=== PATIENT | female | born 1995 | race Caucasian/White ===

== ENCOUNTER 2018-07-13 09:10 | Emergency (ER) | payer BC ==
--- NOTE | 2018-07-13 09:24 | EDPHY ---
H & P Stated Complaint: CP Time Seen by Provider: 07/13/18 09:19 - Personal History LMP (Females 10-55): 15-21 Days Ago Current Tetanus/Diphtheria Vaccine: Yes - Medical/Surgical History Hx Asthma: No Hx Chronic Respiratory Disease: No Hx Diabetes: No Hx Cardiac Disease: No Hx Renal Disease: No Hx Cirrhosis: No Hx Alcoholism: No Other PMH: Denies - Social History Smoking Status: Never smoked Constitutional: Initial Vital Signs Temperature (C) 36.8 C 07/13/18 09:13 Heart Rate 75 07/13/18 09:13 Respiratory Rate 18 07/13/18 09:13 Blood Pressure 142/80 H 07/13/18 09:13 O2 Sat (%) 100 07/13/18 09:13 O2 Delivery Mode Room Air Allergies/Adverse Reactions: No Known Allergies Allergy (Unverified 07/13/18 09:16) Home Medications: Medication Instructions Recorded Ibuprofen [Motrin] 800 mg PO Q8 #20 tab 07/13/18 Norethindrone 07/13/18 Medical Decision Making ED Course/Re-evaluation: CHIEF COMPLAINT: Chest pain HISTORY OF PRESENT ILLNESS: Healthy 23-year-old female who has 1 month history of right chest wall pain that radiates toward her right shoulder. It is exacerbated by movement and deep breath. 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 Or when she stretches her chest. She has never had symptoms like this before. She does take low-dose control pills. She denies any: No fever, headache, body aches, lightheadedness , heart palpitations, shortness of breath, cough, abdominal pain, urinary or bowel complaints, numbness, paresthesias. REVIEW OF SYSTEMS: A comprehensive 10 system review of systems is otherwise negative aside from elements mentioned in the history of present illness and medical decision making. PHYSICAL EXAM: HR, BP, O2 Sat, RR. Temp noted General Appearance: Alert, well hydrated, appropriate, and non-toxic appearing. Head: Atraumatic without scalp tenderness or obvious injury Eyes: Pupils equal, round, reactive to light and accommodation, EOMI, no trauma , no injection. Ears: Clear bilaterally, no perforation, normal landmarks Nose: Atraumatic, no rhinorrhea, clear. Throat: There is no erythema or exudates, no lesions, normal tonsils, mucus membranes moist. Neck: Supple, 2+ carotid upstroke, nontender, no lymphadenopathy. Respiratory: No retractions, no distress, no wheezes, and no accessory muscle use. Lungs are clear to auscultation bilaterally. Cardiovascular: Regular rate and rhythm, no murmurs, rubs, or gallops. Bilateral carotid, radial, dorsalis pedis, and posterior tibial pulses intact. Good capillary refill all extremities. Gastrointestinal: Abdomen is soft, nontender, non-distended, no masses, no rebound, no guarding, no peritoneal signs. Musculoskeletal: Completely reproducible chest wall pain along the right anterior chest. This is the exact pain the patient is experiencing when she moves and takes a deep breath. Normal active ROM of all extremities, atraumatic. Neurological: Alert, appropriate, and interactive. The patient has normal DTRs and non-focal cranial nerves, motor, sensory, and cerebellar exam. Skin: No rashes, good turgor, no nodules on palpation. Past medical history: Patient denies Past surgical history: Patient denies Family history: Noncontributory Social history: Single, student, does not abuse tobacco drugs or alcohol DIAGNOSTICS/PROCEDURES/CRITICAL CARE TIME: The 12 lead EKG was interpreted by myself. See hard copy and/or "tracemaster" electronic copy for interpretation. Sinus mechanism, normal intervals, no ischemia, no pericarditis DIFFERENTIAL DIAGNOSIS: The differential diagnosis for the patient's chest pain included but was not limited to costochondritis, myocardial ischemia, pulmonary embolus, chest wall pain, pleural inflammation, and pulmonary infectious causes. MEDICAL DECISION MAKING: This patient has reproducible chest wall pain. She is very active with her drama courses and yoga. EKG is unremarkable. Laboratory studies are unremarkable. This patient does not have a blood clot with a negative D-dimer and she does not troponin bump. This patient is somewhat relieved with Toradol. I will start her on an NSAID and have her follow up with primary care as needed. - Data Points Laboratory Results: Laboratory Results 07/13/18 09:30 07/13/18 09:30 07/13/18 07/13/18 07/13/18 09:59 09:34 09:30 WBC RBC Hgb Hct MCV MCH MCHC RDW Plt Count MPV Neut % (Auto) Lymph % (Auto) Cross % (Auto) Eos % (Auto) Baso % (Auto) Nucleat RBC Rel Count Absolute Neuts (auto) Absolute Lymphs (auto) Absolute Monos (auto) Absolute Eos (auto) Absolute Basos (auto) Absolute Nucleated RBC Immature Gran % Immature Gran # D-Dimer < 0.27 ug/mLFEU ug/mLFEU (0.00-0.50) Sodium 140 mEq/L mEq/L (135-145) Potassium 3.9 mEq/L mEq/L (3.5-5.2) Chloride 104 mEq/L mEq/L (97-110) Carbon Dioxide 26 mEq/l mEq/l (22-31) Anion Gap 10 mEq/L mEq/L (6-14) BUN 9 mg/dL mg/dL (7-23) Creatinine 0.7 mg/dL mg/dL (0.6-1.0) Estimated GFR > 60 Glucose 84 mg/dL mg/dL (70-100) Calcium 9.6 mg/dL mg/dL (8.5-10.4) POC Troponin I 0.00 ng/mL ng/mL (0.00-0.08) 07/13/18 07/13/18 09:30 09:30 WBC 7.23 10^3/uL 10^3/uL (3.80-9.50) RBC 4.49 10^6/uL 10^6/uL (4.18-5.33) Hgb 15.0 g/dL g/dL (12.6-16.3) Hct 42.5 % % (38.0-47.0) MCV 94.7 fL fL (81.5-99.8) MCH 33.4 pg pg (27.9-34.1) MCHC 35.3 g/dL g/dL (32.4-36.7) RDW 12.5 % % (11.5-15.2) Plt Count 254 10^3/uL 10^3/uL (150-400) MPV 11.4 fL fL (8.7-11.7) Neut % (Auto) 53.6 % % (39.3-74.2) Lymph % (Auto) 37.6 % % (15.0-45.0) Cross % (Auto) 5.4 % % (4.5-13.0) Eos % (Auto) 1.9 % % (0.6-7.6) Baso % (Auto) 1.4 % % (0.3-1.7) Nucleat RBC Rel Count 0.0 % % (0.0-0.2) Absolute Neuts (auto) 3.87 10^3/uL 10^3/uL (1.70-6.50) Absolute Lymphs (auto) 2.72 10^3/uL 10^3/uL (1.00-3.00) Absolute Monos (auto) 0.39 10^3/uL 10^3/uL (0.30-0.80) Absolute Eos (auto) 0.14 10^3/uL 10^3/uL (0.03-0.40) Absolute Basos (auto) 0.10 10^3/uL 10^3/uL (0.02-0.10) Absolute Nucleated RBC 0.00 10^3/uL 10^3/uL (0-0.01) Immature Gran % 0.1 % % (0.0-1.1) Immature Gran # 0.01 10^3/uL 10^3/uL (0.00-0.10) D-Dimer REJ Sodium Potassium Chloride Carbon Dioxide Anion Gap BUN Creatinine Estimated GFR Glucose Calcium POC Troponin I Point of Care Test Results: Chemistry 07/13/18 09:34 POC Troponin I 0.00 ng/mL ng/mL (0.00-0.08) Departure - Departure Disposition: Home, Routine, Self-Care Clinical Impression: Costochondritis Condition: Good Instructions: Costochondritis (ED) Additional Instructions: 1. Take Motrin as prescribed. 2. Follow-up with your primary doctor within 72 hours. 3. Return to the Emergency Department for fever, chest pain, shortness of breath , increasing pain or other worsening of condition. Referrals: [facility],. [Clinic] - As per Instructions Prescriptions: Ibuprofen [Motrin] 800 mg PO Q8 #20 tab Report Scribed for: Zhao Wen Report Scribed by: Fabiana Fair Date of Report: 07/13/18 Time of Report: 09:27
[2018-07-13 09:41] LABS: PLATELET COUNT 254 10^3/uL (150-400)
[2018-07-13 10:32] VITALS: BP 137/70
--- NOTE | 2018-07-13 14:37 | CPEKG ---
Test Reason : OPEN Blood Pressure : / mmHG Vent. Rate : 065 BPM Atrial Rate : 063 BPM P-R Int : 139 ms QRS Dur : 096 ms QT Int : 397 ms P-R-T Axes : 034 013 030 degrees QTc Int : 413 ms Sinus rhythm Confirmed by Zhao Wen ([id number]) on 07/13/2018 2:36:26 PM Referred By: Zhao Wen Confirmed By:Zhao Wen
== END 2018-07-13 10:31 | disposition home or self-care (01) ==
DX: M94.0 Chondrocostal junction syndrome [Tietze] (principal)
CPT/HCPCS: 84484-ER

== ENCOUNTER 2018-07-18 11:37 | Emergency (ER) | payer BC ==
--- NOTE | 2018-07-18 13:15 | EDPHY ---
H & P Time Seen by Provider: 07/18/18 13:10 HPI/ROS: Chief complaint. Shoulder pain HPI. 23-year-old female with right anterior chest pain and right shoulder pain for 1 month. It is tender to palpation. It is in the right chest and goes to the right shoulder, right-sided neck and some radiation down the right arm. She describes as pinching type pain. It is worse with movement of her right shoulder as well as stretching her chest. Increased discomfort after use yesterday. 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 Slight nausea. No fever. No injury at the onset. Patient was seen July 13 in our ED for same. She had a normal workup with EKG, troponin , D-dimer. No x-ray was performed. Diagnosis was costochondritis. She has been using anti-inflammatories with inadequate relief ROS 10 systems were reviewed and negative with the exception of the elements mentioned in the history of present illness Past Medical/Surgical History: Healthy Social History: Single, nonsmoker, no alcohol Smoking Status: Never smoked Physical Exam: General Appearance: Alert pleasant well-developed female mild distress. Vital signs are stable Eyes: Pupils equal and round no pallor or injection. ENT, Mouth: Mucous membranes are moist. Respiratory: There are no retractions, lungs are clear to auscultation. Cardiovascular: Regular rate and rhythm. Gastrointestinal: Abdomen is soft and nontender, no masses, bowel sounds normal. Neurological: Awake and alert, sensory and motor exams grossly normal. Skin: Warm and dry, no rashes. Musculoskeletal: Tenderness to the right side of her neck but not over the cervical spine. No T, L, S spine tenderness. Exquisite tenderness to palpation at the sternal clavicular junction on the right reproducing her symptoms. Mild discomfort to the shoulder without any evidence of redness or deformity Extremities symmetrical, full range of motion. Psychiatric: Patient is oriented X 3, there is no agitation. Constitutional: Initial Vital Signs Temperature (C) 36.7 C 07/18/18 11:40 Heart Rate 88 07/18/18 11:40 Respiratory Rate 18 07/18/18 11:40 Blood Pressure 133/75 H 07/18/18 11:40 O2 Sat (%) 97 07/18/18 11:40 O2 Delivery Mode Room Air Allergies/Adverse Reactions: No Known Allergies Allergy (Verified 07/18/18 12:27) Home Medications: Medication Instructions Recorded Ibuprofen [Motrin] 800 mg PO Q8 #20 tab 07/13/18 Norethindrone 07/13/18 predniSONE 40 mg PO DAILY #8 tablet 07/18/18 Medical Decision Making - Diagnostics Imaging Results: X-ray chest and right shoulder interpreted by me is negative. Possible slight inflammation at the right sternoclavicular junction ED Course/Re-evaluation: Re-evaluation patient is stable. Patient and I discussed imaging study results , treatment plan including criteria for return importance of follow-up further evaluation. She expresses understanding Differential Diagnosis: Clinically the patient has costochondritis. She is quite tender at the right sternoclavicular junction that reproduces her pain. She had a normal workup 5 days ago with EKG troponin D-dimer. She has been using ibuprofen with inadequate relief. Departure - Departure Disposition: Home, Routine, Self-Care Clinical Impression: Costochondritis, acute Condition: Good Instructions: Costochondritis (ED) Additional Instructions: Use prednisone daily for the next 4 days. Discontinue the ibuprofen while taking the prednisone. May resume taking the ibuprofen when finished with the prednisone Activity as tolerated Re-evaluation in 3-4 days if not improving Referrals: Martha Elder MD [Primary Care Provider] - 3-4 days, if not improved Prescriptions: predniSONE 40 mg PO DAILY #8 tablet
[2018-07-18 14:13] VITALS: BP 118/67
== END 2018-07-18 14:13 | disposition home or self-care (01) ==
DX: M94.0 Chondrocostal junction syndrome [Tietze] (principal); M25.511 Pain in right shoulder